=== PATIENT | female | born 1965 | race Caucasian/White ===

== ENCOUNTER 2023-05-12 07:40 | Day surgery (SDC) | payer BC ==
[2023-05-08 12:09] VITALS: BMI 22.1
[2023-05-12 08:04] VITALS: RESP 16
[2023-05-12 09:52] VITALS: BP 103/65; PULSE 76; TEMP 97.6
== END 2023-05-12 09:59 | disposition home or self-care (01) ==
LOC: FASU-ENDO 07:40
PROVIDERS: ATTEND Internal Medicine Gastroenterology
PROC: 0DJD8ZZ Inspection of Lower Intestinal Tract, Via Natural or Artificial Opening Endoscopic (ICD-10-PCS; principal; 2023-05-12 09:12)
DX: Z12.11 Encounter for screening for malignant neoplasm of colon (principal)